=== PATIENT | female | born 1970 | race Caucasian/White ===

== ENCOUNTER → 2018-07-28 | Outpatient (CLI) | payer OTHER ==
--- NOTE | 2018-07-28 16:22 | KCIC ---
Bilateral digital screening mammograms: Reason for examination: Routine screening. Comparison is made to previous study dated 06/21/2015. Interpretation was made with the benefit of CAD. The skin and nipples show no abnormalities. No abnormal lymph nodes are seen. The breast parenchyma is predominantly fatty. (Breast density: Category A.) There are no dominant masses, suspicious calcifications or architectural distortions. Benign calcifications are again seen. Impression: No evidence of malignancy. Recommend routine screening. BI-RADS Category 2: Benign. "Our facility is accredited by the [employer] Mammography Program." This patient's information has been entered into a reminder system for the patient to be notified with the results of her examination and a target date for the next mammogram. Electronically signed by: Rae Beach MD (07/28/2018 4:18 PM) [id number]
== END | disposition home or self-care (01) ==
LOC: KCIC MAMMO 09:28
PROVIDERS: ATTEND Family Medicine
DX: Z12.31 Encounter for screening mammogram for malignant neoplasm of breast (principal)
CPT/HCPCS: 77067

== ENCOUNTER → 2020-08-10 | Outpatient (CLI) | payer MEDICARE ==
--- NOTE | 2020-08-10 08:37 | KCIC ---
CHEST PA LATERAL Technique: PA and lateral views of the chest were obtained. Clinical History: Reason: Cough, hx. pneumonia, ILD, V/P shunt, no fever, headache 1 week. / Spl. Instructions: / History: Comparison: None. Findings: The heart is top normal limits in size. The pulmonary vessels are normal. There is increased reticular opacities of the lungs and linear opacities in the left lung base. The vertical catheter on the right suggests a possible tracheal peroneal shunt. Impression: Interstitial infiltrates suggesting atypical pneumonia. Recommend follow-up chest x-ray to complete resolution. Electronically signed by: Giovanny Lopez III, MD (08/10/2020 8:35 AM) [id number]
== END ==
LOC: KCIC 08:11
PROVIDERS: ATTEND Family Medicine
DX: R05 Cough (principal); J84.9 Interstitial pulmonary disease, unspecified; Z87.01 Personal history of pneumonia (recurrent)
CPT/HCPCS: 71046

== ENCOUNTER → 2020-08-21 | Outpatient (CLI) | payer MEDICARE ==
[~2020-08-21] MED LIST: BIOT10004 PO; CETI10TA74 PO; CRESTOR5 MG PO; DOXE10CA PO; DULO60CA6 PO; HYDR200T5 PO; LEVO175T2 PO; MULT-496 PO; MYCO500T PO; PANT40TA77 PO; PIOG15TA63 PO; SITA100T PO; TIZA4TAB2 PO; TRIA1CAP3 PO; [UNRECOGNIZED DRUG - CODE] PO; vitamin d3 PO
== END ==
LOC: LAB 13:44
PROVIDERS: ATTEND Internal Medicine Cardiovascular Disease
DX: Z01.812 Encounter for preprocedural laboratory examination (principal); I49.5 Sick sinus syndrome; Z20.828 Contact with and (suspected) exposure to other viral communicable diseases
CPT/HCPCS: U0003

== ENCOUNTER 2020-08-24 06:52 | Observation (INO) | payer MEDICARE ==
[~2020-08-24] VITALS: Ht 177.8 cm; Wt 149.7 kg
[2020-08-24] VITALS (21 sets, daily range): BP systolic 94–153; BP diastolic 53–92
[2020-08-24] MEDS ORDERED: SITA100T PO (07:36)
[2020-08-24] MEDS ORDERED: PANT40TA77 PO (07:36)
[2020-08-24] MEDS ORDERED: CETI10TA74 PO (07:36)
[2020-08-24] MEDS ORDERED: MYCO500T PO (07:36)
[2020-08-24] MEDS ORDERED: TRIA1CAP3 PO (07:36)
[2020-08-24] MEDS ORDERED: DOXE10CA PO (07:36)
[2020-08-24] MEDS ORDERED: MULT-496 PO (07:36)
[2020-08-24] MEDS ORDERED: DULO60CA6 PO (07:36)
[2020-08-24] MEDS ORDERED: [UNRECOGNIZED DRUG - CODE] PO (07:36)
[2020-08-24] MEDS ORDERED: TIZA4TAB2 PO (07:36)
[2020-08-24] MEDS ORDERED: CRESTOR5 MG PO (07:36)
[2020-08-24] MEDS ORDERED: HYDR200T5 PO (07:36)
[2020-08-24] MEDS ORDERED: vitamin d3 PO (07:36)
[2020-08-24] MEDS ORDERED: LEVO175T2 PO (07:36)
[2020-08-24] MEDS ORDERED: PIOG15TA63 PO (07:36)
[2020-08-24] MEDS ORDERED: BIOT10004 PO (07:36)
[2020-08-24 07:52] LABS: CALCIUM 8.7 mg/dL (8.5-10.1); CREATININE 0.7 mg/dL (0.6-1.0); GFR 88.9; POTASSIUM 3.8 mmol/L (3.5-5.1)
[2020-08-24 07:54] LABS: HEMATOCRIT 32.2 % (36.0-47.0); HEMOGLOBIN 10.1 g/dL (12.0-15.5); RED BLOOD COUNT 4.85 x10^6/uL (3.50-5.40); RED CELL DISTRIBUTION WIDTH 17.6 % (11.5-14.5); WHITE BLOOD COUNT 7.5 x10^3/uL (4.0-11.0)
[2020-08-24 08:04] LABS: PROTHROMBIN TIME PATIENT 13.2 SEC (11.7-14.0)
--- NOTE | 2020-08-24 08:10 | EKG ---
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
[2020-08-24] MEDS ORDERED: ceFAZolin SODIUM 3 GM in IV DEXTROSE 5% 100ML 100 ML IV ONE (08:30)
[2020-08-24] MEDS ORDERED: BACITRACIN 50,000 UNIT in IV NORMAL SALINE 250ML 250 ML IRR ONE (08:30)
[2020-08-24] MEDS ORDERED: MIDAZOLAM HCL/PF 5 MG/5 ML VIAL. ONE (08:35)
[2020-08-24] MEDS ORDERED: fentaNYL PF VIAL 100 MCG/2 ML VIAL ONE ×2 (08:35→09:13)
[2020-08-24] MEDS ORDERED: LIDOCAINE 2%/EPI 1:100,000 20 ML VIAL. ONE (08:37)
[2020-08-24] MEDS ORDERED: fentaNYL PF VIAL 100 MCG/2 ML VIAL IV ONE (09:00)
[2020-08-24] MEDS ORDERED: MIDAZOLAM HCL/PF 5 MG/5 ML VIAL. IV ONE (09:00)
[2020-08-24] MEDS ORDERED: LIDOCAINE 2%/EPI 1:100,000 20 ML VIAL. IJ ONE (09:00)
--- NOTE | 2020-08-24 09:37 | PDOC ---
MODERATE SEDATION ASSESSMENT RISKS/ALTERNATIVES Risks/Alternatives Risks and alternatives of this type of sedation and procedure discussed with: RISK/ALTERNATIVES: Patient H & P ON CHART H & P H & P on chart and reviewed for co-morbid conditions and appropriate labs. H&P ON CHART: Yes STATUS PREG STATUS ASSESSED: N/A MEDS/ALLERGIES REVIEWED Meds/Allergies Reviewed Medications and Allergies including time and route of recently administered narcotics and sedatives. MEDS/ALLERGIES REVIEWED: Yes ASA RATING ASA RATING: III AIRWAY ASSESSMENT Airway Assessment Airway patency, oral function limitations, presence of caps, crowns, dentures, partials, and ability to extend neck assessed. AIRWAY ASSESSMENT: Yes MALLAMPATI SCORE MALLAMPATI SCORE: II PRE-SEDATION ASSESSMENT PRE-SEDATION ASSESSMENT: Yes STEPHANIE STALEY MD Aug 24, 2020 09:36
--- NOTE | 2020-08-24 10:00 | CARD ---
MR#: [id number] Date of Study: 08/24/2020 Ordering Physician: STEPHANIE BAÑUELOS, Referring Physician: STEPHANIE BAÑUELOS, Tech: APPROVED REPORT PROCEDURES Implantation of Medtronic dual-chamber permanent pacemaker Sedation Time: 62 Minutes Fluoro Time: 2.5 Minutes Dose: 34.66 Gycm2 INDICATIONS Syncope, sick sinus syndrome with 13-second pauses PROCEDURE After explaining the risks, benefits, and alternative options, informed consent was obtained from the patient. The patient was brought to the cardiac catheterization lab and the left chest and shoulder were prepp ed and draped in a sterile manner. 30 cc of 2% lidocaine was infiltrated into the skin and subcutaneous tissues for local anesthesia. A n incision was made over the left infraclavicular fossa and using blunt dissection and cautery, a poc ket was created. Venous access was obtained in the left subclavian vein and 8 and 6 Fijian sheaths i nserted. A Medtronic bipolar active fixation right ventricular lead model 413575, serial number [id number] wa s advanced under fluoroscopic guidance and the tip was positioned in the right ventricular apex. Fol lowing this, a Medtronic bipolar active fixation right atrial lead model 154745, serial number [id number] was positioned in the right atrial appendage under fluoroscopic guidance. The leads were secur ed into place and were attached to a Medtronic dual-chamber permanent pacemaker generator model W3DR0 1, serial number [id number]. This was placed in the pocket that was subsequently closed in 3 layers. Hemostasis was secured. The right ventricular lead showed a sensing amplitude of 16.8 mV, impedance of 710 ohms and a thresho ld of 0.3 V. Right atrial lead showed a sensing amplitude of 2.2 mV, impedance of 481 ohms and a thr eshold of 1.1 V. Patient tolerated the procedure well. There were no immediate complications. CONCLUSION Successful implantation of Medtronic dual-chamber permanent pacemaker for symptomatic sick sinus synd sharon with significant pauses. Signed by : Stephanie Bañuelos, Electronically Approved : 08/24/2020 10:00:00
--- NOTE | 2020-08-24 10:19 | RAD ---
PORTABLE CHEST 1V 08/24/2020 9:34 AM INDICATION: Pacemaker placement COMPARISON: 08/10/2020 TECHNIQUE: Portable frontal view of the chest is provided. FINDINGS: The cardiomediastinal silhouette is within normal limits. Lungs are clear. Left chest wall cardiac device is identified with leads projecting over the right atrium and ventricle. Right chest wall ventricular peritoneal catheter is partially profiled. Mild pulmonary vascular congestion, similar to the prior examination. There may be trace left pleural effusion. No pneumothorax. No new airspace consolidation. Anterior cervical discectomy fusion hardware is partially profiled within the mid cervical spine. IMPRESSION: Left chest wall cardiac device is identified with leads projecting over the right atrium and right ventricle. No pneumothorax. Similar degree of suspected mild heart failure. Electronically signed by: Chel Fine MD (08/24/2020 10:16 AM) [id number]
--- NOTE | 2020-08-24 11:22 | NUR ---
Report given to Nica VALDEZ on . Patient had pacemaker placed for sick sinus syndrome this a.m., dressing left chest is clean,dry,intact and arm immobilizer is in place. Patient ate breakfast, vital signs stable, and patient resting comfortably in bed. This RN will transport patient to room 260.
[2020-08-24] MEDS: oxyCODONE/APAP 5/325 1 TAB TABLET PO PRN ×3 (12:33→21:18)
[2020-08-24] MEDS: CALCIUM CARBONATE 500 MG TAB.CHEW PO SCH ×2 (14:46→21:17)
[2020-08-24] MEDS: CETIRIZINE HCL 10 MG TABLET. PO SCH (14:46)
[2020-08-24] MEDS: PANTOPRAZOLE 40 MG TABLET.DR. PO SCH (16:19)
[2020-08-24] MEDS: INSULIN LISPRO 300 UNITS/3 ML VIAL. SQ SCH (17:00)
[2020-08-24] MEDS ORDERED: DEXTROSE 50% 25 GM / 50ML DISP.SYRIN. IV PRN (17:00)
[2020-08-24] MEDS ORDERED: NON FORMULARY ITEM (Biotin 1 TAB) PO SCH (21:00)
[2020-08-24] MEDS ORDERED: ATORVASTATIN CALCIUM 40 MG TABLET. PO SCH (21:00)
[2020-08-24] MEDS ORDERED: DOXEPIN HCL 10 MG CAPSULE. PO SCH (21:00)
[2020-08-24] MEDS ORDERED: tiZANidine 4 MG TABLET. PO SCH (21:00)
[2020-08-24] MEDS: HYDROXYCHLOROQUINE 200 MG TABLET PO SCH (21:17)
[2020-08-24] MEDS: MYCOPHENOLATE MOFETIL 250 MG CAPSULE. PO SCH (21:18)
[2020-08-25] MEDS: oxyCODONE/APAP 5/325 1 TAB TABLET PO PRN ×2 (02:05→06:27)
[2020-08-25 02:45] VITALS: BP 108/57
[2020-08-25] MEDS ORDERED: LEVOTHYROXINE 175 MCG TABLET PO SCH (06:00)
[2020-08-25] MEDS: PANTOPRAZOLE 40 MG TABLET.DR. PO SCH (06:23)
[2020-08-25 07:00] VITALS: BP 115/66
[2020-08-25] MEDS: INSULIN LISPRO 300 UNITS/3 ML VIAL. SQ SCH (08:00)
[2020-08-25] MEDS: HYDROXYCHLOROQUINE 200 MG TABLET PO SCH (08:43)
[2020-08-25] MEDS: CALCIUM CARBONATE 500 MG TAB.CHEW PO SCH (08:44)
[2020-08-25] MEDS: CETIRIZINE HCL 10 MG TABLET. PO SCH (08:45)
[2020-08-25] MEDS: MYCOPHENOLATE MOFETIL 250 MG CAPSULE. PO SCH (08:46)
[2020-08-25] MEDS ORDERED: MULTIVITAMIN with MINERAL TABLET. PO SCH (09:00)
[2020-08-25] MEDS ORDERED: TRIAMTERENE/HCTZ 37.5/25MG TABLET. PO SCH (09:00)
[2020-08-25] MEDS ORDERED: LINAGLIPTIN 5 MG TABLET PO SCH (09:00)
[2020-08-25] MEDS ORDERED: DULoxetine HCL 30 MG CAPSULE.DR PO SCH (09:00)
[2020-08-25] MEDS ORDERED: PIOGLITAZONE 15 MG TABLET. PO SCH (09:00)
[2020-08-25] MEDS ORDERED: CHOLECALCIFEROL (VITAMIN D3) 5,000 UNIT CAPSULE PO SCH (09:00)
--- NOTE | 2020-08-25 10:06 | RAD ---
CHEST PA LATERAL INDICATION: Reason: 1 day post pacemaker / Spl. Instructions: / History: . COMPARISON STUDY: 08/24/2020. FINDINGS: Life Support Devices: Left pectoral pacemaker.. Lungs: Normal lung volume. Unchanged mild interstitial opacities. Pleura: No pleural effusion or pneumothorax. Heart and Mediastinum: Stable cardiomediastinal silhouette and great vessels. Bones and Soft Tissues: Stable regional skeleton and soft tissues. IMPRESSION: Unchanged mild interstitial opacities. No pneumothorax. Electronically signed by: Jeff Jaimes MD (08/25/2020 10:03 AM) [id number]
[2020-08-25 11:00] VITALS: BP 147/78
[2020-08-25] MEDS ORDERED: ASPI-886 PO (11:09)
--- NOTE | 2020-08-25 13:22 | NUR ---
Discharge Note: YULI FALLON [address] Discharge instructions and discharge home medications reviewed with Patient and a copy given. All questions have been answered and understanding verbalized. The following instructions and handouts were given: Pots pacemaker placement dc teaching. Discontinued iv line and catheter intact. Patient discharged to home with self-care via private vehicle.
--- NOTE | 2020-08-25 14:18 | PDOC3 ---
Discharge Summary Visit Information Date of Admission: Aug 24, 2020 Date of Discharge: Aug 25, 2020 Admitting Diagnosis: Syncope with sick sinus syndrome with severe pauses. Final Diagnosis Syncope with sick sinus syndrome and severe pauses up to 13 seconds Brief Hospital Course Allergies Allergies Coded Allergies Type Severity Reaction Last Updated Verified No Known Drug Allergies 08/06/20 No Vital Signs Vital Signs Date Time Temp Pulse Resp B/P (MAP) Pulse Ox O2 Delivery O2 Flow Rate FiO2 08/25/20 11:00 97.5 62 18 147/78 (101) 95 Room Air 97.5 08/25/20 08:00 2.0 Lab Results Laboratory Tests Test 08/24/20 07:35 08/24/20 11:49 08/24/20 16:59 08/24/20 20:50 White Blood Count 7.5 x10^3/uL (4.0-11.0) Red Blood Count 4.85 x10^6/uL (3.50-5.40) Hemoglobin 10.1 g/dL (12.0-15.5) Hematocrit 32.2 % (36.0-47.0) Mean Corpuscular Volume 67 fL (79-100) Mean Corpuscular Hemoglobin 21 pg (25-35) Mean Corpuscular Hemoglobin Concent 31 g/dL (31-37) Red Cell Distribution Width 17.6 % (11.5-14.5) Platelet Count 410 x10^3/uL (140-400) Prothrombin Time 13.2 SEC (11.7-14.0) Prothromb Time International Ratio 1.0 (0.8-1.1) Sodium Level 141 mmol/L (136-145) Potassium Level 3.8 mmol/L (3.5-5.1) Chloride Level 105 mmol/L (98-107) Carbon Dioxide Level 26 mmol/L (21-32) Anion Gap 10 (6-14) Blood Urea Nitrogen 10 mg/dL (7-20) Creatinine 0.7 mg/dL (0.6-1.0) Estimated GFR (Cockcroft-Gault) 88.9 Glucose Level 128 mg/dL (70-99) Calcium Level 8.7 mg/dL (8.5-10.1) Glucose (Fingerstick) 166 mg/dL (70-99) 131 mg/dL (70-99) 84 mg/dL (70-99) Test 08/25/20 07:57 08/25/20 11:36 Glucose (Fingerstick) 103 mg/dL (70-99) 107 mg/dL (70-99) Laboratory Tests Test 08/24/20 16:59 08/24/20 20:50 08/25/20 07:57 08/25/20 11:36 Glucose (Fingerstick) 131 mg/dL (70-99) 84 mg/dL (70-99) 103 mg/dL (70-99) 107 mg/dL (70-99) Brief Hospital Course The patient is a 50-year-old female with history of syncope. Work-up showed sick sinus syndrome with severe pauses up to 13 seconds. Risks and benefits of permanent pacemaker were discussed with the patient and she agreed to proceed. A dual-chamber pacemaker was placed without complications on 08/24/2020. The patient remained stable overnight. Chest x-rays both post device and this morning showed no acute changes and no pneumothorax. Interrogation of device this morning shows normal functioning. The patient was stable overnight and is feeling well today. She will be discharged in a stable condition on her baseline home medications. We will follow-up the patient by phone in 2 days and arrange an outpatient wound check. Assessment Assessment Syncope with sick sinus syndrome and severe pauses. Successful placement of a dual-chamber permanent pacemaker. Discharge Information Scheduled Aspirin (Aspirin Ec) 81 Mg Tablet.dr, 1 TAB PO DAILY for blood thinner, #30 Ref 3 (Reported) Entered as Reported by: EMIGDIO SAMPSON RN on 08/25/20 1109 Biotin (Biotin) 1,000 Mcg Tab.chew, 1 TAB PO BID for rx for 30 Days, #60 Ref 0 ( Reported) Entered as Reported by: EARNEST CRESPO on 08/24/20735 Last Action: Converted on 08/24/20 130 by CHRIS SHAW Cetirizine Hcl (Zyrtec) 10 Mg Tablet, 1 TAB PO DAILY for rx, #30 Ref 2 (Reported) Entered as Reported by: EARNEST CRESPO on 08/24/20735 Last Action: Continued on 08/24/20 1305 by CHRIS SHAW Doxepin Hcl (Doxepin Hcl) 10 Mg Capsule, 2 CAP PO QHS for rx, #30 Ref 2 (Reported) Entered as Reported by: EARNEST CRESPO on 08/24/20735 Last Action: Continued on 08/24/201304 by CHRIS COLIN Duloxetine Hcl (Cymbalta) 60 Mg Capsule.dr, 1 CAP PO DAILY for rx, #90 Ref 3 (Reported) Entered as Reported by: EARNEST CRESPO on 08/24/20735 Last Action: Converted on 08/24/201304 by CHRIS SHAW Hydroxychloroquine Sulfate (Hydroxychloroquine Sulfate) 200 Mg Tablet, 1 TAB PO BID for rx, #180 Ref 1 (Reported) Entered as Reported by: EARNEST CRESPO on 08/24/20735 Last Action: Continued on 08/24/201304 by CHRIS COLIN Levothyroxine Sodium (Synthroid) 175 Mcg Tablet, 1 TAB PO DAILY for rx, #30 Ref 5 (Reported) Entered as Reported by: EARNEST CRESPO on 08/24/20735 Last Action: Continued on 08/24/201304 by CHRIS SHAW Multivitamin (Daily Value) 1 Each Tablet, 1 TAB PO DAILY for rx for 30 Days, #30 Ref 0 (Reported) Entered as Reported by: EARNEST CRESPO on 08/24/20735 Last Action: Converted on 08/24/201304 by CHRIS COLIN Mycophenolate Mofetil (Cellcept) 500 Mg Tablet, 2 TAB PO BID for rx, #360 Ref 3 (Reported) Entered as Reported by: EARNEST CRESPO on 08/24/20735 Last Action: Converted on 08/24/201304 [facility] Pantoprazole Sodium (Protonix ) 40 Mg Tablet., 40 MG PO DAILYAC for GERD, (Reported) Entered as Reported by: EARNEST CRESPO on 08/24/20735 Last Action: Continued on 08/24/201304 by [facility] Pioglitazone Hcl (Pioglitazone Hcl) 15 Mg Tablet, 15 MG PO DAILY for rx, (Reported) Entered as Reported by: EARNEST CRESPO on 08/24/20735 Last Action: Continued on 08/24/201304 by [facility] Rosuvastatin Calcium (Crestor) 5 Mg Tablet, 10 MG PO HS for FOR CHOLESTEROL, #30 Ref 0 (Reported) Entered as Reported by: EARNEST CRESPO on 08/24/20735 Last Action: Converted on 08/24/201304 by [facility] Sitagliptin Phosphate (Januvia) 100 Mg Tablet, 1 TAB PO DAILY for rx, #30 Ref 5 (Reported) Entered as Reported by: EARNEST CRESPO on 08/24/20735 Last Action: Converted on 08/24/201304 by CHRIS SHAW Tizanidine Hcl (Tizanidine Hcl) 4 Mg Tablet, 1 TAB PO QHS for rx, #30 (Reported) Entered as Reported by: EARNEST CRESPO on 08/24/20735 Last Action: Continued on 08/24/201304 by CHRIS SHAW Triamterene/Hydrochlorothiazid (Triamterene-Hctz 37.5-25 Mg Cp) 1 Each Capsule, 1 CAP PO DAILY for rx, #30 Ref 5 (Reported) Entered as Reported by: EARNEST CRESPO on 08/24/20735 Last Action: Converted on 08/24/201304 by CHRIS SHAW [calci-chew] , 1 TAB PO TID, (Reported) Entered as Reported by: EARNEST CRESPO on 08/24/20735 Last Action: Converted on 08/24/201304 by CHRIS SHAW [vitamin d3 ] , 5,000 UNIT PO DAILY, (Reported) Entered as Reported by: EARNEST CRESPO on 08/24/20735 Last Action: Converted on 08/24/201304 by CHRIS SHAW Patient Instructions Patient Instructions Resume present home medications. Gradually increase activities as tolerated. We will check the patient via phone in 2 days. We will schedule follow-up at that time. Justicifation of Admission Dx: Justifications for Admission: Justification of Admission Dx: Yes (Syncope with sick sinus syndrome and severe pauses up to 13 seconds.) EDER SALEH MD Aug 25, 2020 14:18
[2020-08-26] MEDS ORDERED: ASPIRIN CHEWABLE 81 MG TABLET. PO SCH (08:00)
== END 2020-08-25 13:46 | disposition home or self-care (01) ==
LOC: CCL 06:52 → 2 SOUTH 09:00
PROVIDERS: ADMIT Internal Medicine Cardiovascular Disease; ATTEND Internal Medicine Cardiovascular Disease
DX: I49.5 Sick sinus syndrome (principal); T82.9XXA Unspecified complication of cardiac and vascular prosthetic device, implant and graft, initial encounter; R55 Syncope and collapse; K21.9 Gastro-esophageal reflux disease without esophagitis; I10 Essential (primary) hypertension; E11.9 Type 2 diabetes mellitus without complications; E78.5 Hyperlipidemia, unspecified; E03.9 Hypothyroidism, unspecified; Z45.018 Encounter for adjustment and management of other part of cardiac pacemaker; Z79.82 Long term (current) use of aspirin; Z79.890 Hormone replacement therapy; Z79.84 Long term (current) use of oral hypoglycemic drugs; Z79.899 Other long term (current) drug therapy
CPT/HCPCS: 33208; 36415; 71045; 71046; 80048; 82962; 85027; 85610; 93005; 96365; 96366; 96375; 99152; 99153; C1785; C1898; G0378; G0379; J0690; J2250; J3010; J3490; J7050; J7060; J7517; J7030

== ENCOUNTER → 2021-01-16 | Outpatient (CLI) | payer MEDICARE ==
[~2021-01-16] MED LIST changes: +ASPI-886 PO
--- NOTE | 2021-01-21 15:10 | SLEEP ---
DATE OF STUDY: 01/14/2021 SLEEP STUDY ATTENDING PHYSICIAN: Dr. Donovan Galo. The patient is a 50-year-old who weighs 338 pounds with a BMI of 47. The patient underwent split night study performed at [facility]. During the night of study, the patient spent 410 minutes in bed and slept for 363 minutes with a sleep efficiency of 88%. Sleep latency was 6 minutes with a REM latency of 243 minutes. Sleep architecture showed normal stage 1 sleep, increased stage 2 sleep, normal slow wave and reduced REM sleep. During the initial diagnostic portion of the study, the patient slept for 69 minutes. During that time, there were 3 obstructive apneas, 37 hypopneas, no mixed apneas and 8 central apneas. The patient's AHI was 42 per hour. Supine AHI of 42 per hour. REM sleep was not seen during the diagnostic portion. EKG monitoring revealed an average heart rate of 69 beats per minute, no sustained arrhythmias observed. Nocturnal oximetry study revealed a mean oxygen saturation of 92%; the lowest of 86%. Only 2% of the time oxygen saturation remained between 80% and 89%. PLMS were seen at index of 51 per hour and 12 per hour caused EEG arousals. The patient met the criteria for CPAP initiation. It was started at 5 cm water and titrated up to 15 cm water. At the final pressure, the patient slept for 185 minutes. The patient had supine as well as REM sleep. The patient's AHI was reduced to 6 per hour and this was related to few treatment emergent central apneas. All obstructive apneas were eliminated as well as hypopneas were eliminated. Oxygen saturation remained above 91%. IMPRESSION: 1. Severe obstructive sleep apnea at an apnea-hypopnea index of 42 per hour. 2. Nocturnal hypoxia, resolved with continuous positive airway pressure. 3. Severe periodic limb movements at an index of 51 per hour and 12 per hour caused electroencephalogram arousals. RECOMMENDATIONS: 1. CPAP at 15 cm water completely eliminated the patient's sleep apnea and should be used on a nightly basis. The patient used small size nasal full facemask. 2. Follow up in 4-6 weeks to assess compliance with CPAP and to document clinical improvement. 3. Weight loss is strongly advised. 4. 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 5. Cautioned regarding driving until symptoms of sleep apnea resolve with the use of CPAP. 6. The patient should also be further evaluated for symptoms of restless legs during the day. JEFFRY PUENTE MD DR: CHRIS/rafael JOB#: [id number] / [id number] DONOVAN Jimenez MD
== END ==
LOC: SLPLAB 18:44
PROVIDERS: ATTEND Family Medicine
DX: G47.33 Obstructive sleep apnea (adult) (pediatric) (principal); G47.34 Idiopathic sleep related nonobstructive alveolar hypoventilation; G47.61 Periodic limb movement disorder
CPT/HCPCS: 95810

== ENCOUNTER 2021-07-08 08:19 | Outpatient (CLI) | payer MEDICARE ==
[~2021-07-08] VITALS: Ht 177.8 cm; Wt 159.1 kg
[2021-07-08] VITALS (11 sets, daily range): BP systolic 106–146; BP diastolic 68–82
[2021-07-08 09:06] LABS: HEMOGLOBIN 14.4 g/dL (12.0-15.5); RED BLOOD COUNT 5.24 x10^6/uL (3.50-5.40); RED CELL DISTRIBUTION WIDTH 15.7 % (11.5-14.5); WHITE BLOOD COUNT 6.5 x10^3/uL (4.0-11.0)
[2021-07-08] MEDS ORDERED: ROPI2TAB10 PO (09:09)
[2021-07-08] MEDS ORDERED: ONDA4TAB7 PO (09:09)
[2021-07-08] MEDS ORDERED: CELE200C PO (09:09)
[2021-07-08 09:13] LABS: CALCIUM 9.1 mg/dL (8.5-10.1); CREATININE 0.9 mg/dL (0.6-1.0); GFR 66.3; POTASSIUM 3.4 mmol/L (3.5-5.1)
[2021-07-08] MEDS ORDERED: IODIXANOL 320 MG/ML 100 ML VIAL. ONE (09:28)
[2021-07-08] MEDS ORDERED: LIDOCAINE 1% Multi-Dose 20 ML VIAL. ONE (09:29)
[2021-07-08] MEDS ORDERED: fentaNYL PF VIAL 100 MCG/2 ML VIAL ONE (09:45)
[2021-07-08] MEDS ORDERED: MIDAZOLAM HCL/PF 2 MG/2 ML VIAL. ONE (09:45)
--- NOTE | 2021-07-08 09:47 | PDOC ---
MODERATE SEDATION ASSESSMENT RISKS/ALTERNATIVES Risks/Alternatives Risks and alternatives of this type of sedation and procedure discussed with: RISK/ALTERNATIVES: Patient H & P ON CHART H & P H & P on chart and reviewed for co-morbid conditions and appropriate labs. H&P ON CHART: Yes STATUS PREG STATUS ASSESSED: N/A MEDS/ALLERGIES REVIEWED Meds/Allergies Reviewed Medications and Allergies including time and route of recently administered narcotics and sedatives. MEDS/ALLERGIES REVIEWED: Yes ASA RATING ASA RATING: II AIRWAY ASSESSMENT Airway Assessment Airway patency, oral function limitations, presence of caps, crowns, dentures, partials, and ability to extend neck assessed. AIRWAY ASSESSMENT: Yes MALLAMPATI SCORE MALLAMPATI SCORE: II PRE-SEDATION ASSESSMENT PRE-SEDATION ASSESSMENT: Yes STEPHANIE STALEY MD Jul 08, 2021 09:47
[2021-07-08] MEDS ORDERED: LIDOCAINE 1% Multi-Dose 20 ML VIAL. INJ ONE (10:30)
[2021-07-08] MEDS ORDERED: MIDAZOLAM HCL/PF 2 MG/2 ML VIAL. IV ONE (10:30)
[2021-07-08] MEDS ORDERED: fentaNYL PF VIAL 100 MCG/2 ML VIAL IV ONE (10:30)
[2021-07-08] MEDS ORDERED: IODIXANOL 320 MG/ML 100 ML VIAL. IART ONE (10:30)
[2021-07-08] MEDS ORDERED: IV 1/2 NORMAL SALINE 1,000 ML IV SCH (10:45)
--- NOTE | 2021-07-08 10:52 | CARD ---
MR#: [id number] Date of Study: 07/08/2021 Ordering Physician: STEPHANIE BAÑUELOS, Referring Physician: STEPHANIE BAÑUELOS, Tech: RT Radha(R)() APPROVED REPORT Technologist: RT Radha(R)() Nurse: Shila Ramires RN Procedure(s) performed: Right and left heart catheterization, selective coronary angiography MODERATE SEDATION TIME: 44 MINUTES FLUORO TIME: 4.9 MIN DOSE: 61 GYCM2 CONTRAST: 104CC VISI INDICATION The indication(s) include : Refractory dyspnea on exertion and chest pain concerning for unstable ang elkin. [facility] Clinical Frailty Scale [facility] Clinical Frailty Scale: Mildly Frail Heart Failure Heart Failure: No CASE TECHNIQUE IV conscious sedation was used throughout procedure with appropriate monitoring and was performed in the presence of a registered nurse who was an independent trained observer other than the physician p erforming the procedure. During this case, Fluoroscopy and low osmolar contrast were used for imaging . Specimen(s) Removed: No Estimated Blood loss: 20 cc's. PROCEDURE NARRATIVE After explaining the risk, benefits and alternative options, informed consent was obtained from patie nt. Patient was brought to the cardiac Technical Services Coordinator and her right groin was prepped and draped in the us ual fashion. 20 cc of 2% lidocaine was infiltrated into the skin and subcutaneous tissues for local anesthesia. Arterial and venous accesses were obtained in the right common femoral artery and vein r espectively and 6 and 8 Icelandic sheaths inserted. A 7.5 Icelandic Hatton-Vandana catheter was then advanced u nder fluoroscopic guidance and intracardiac pressures, oxygen saturations and cardiac output by Melissa method measured. Subsequently, 6 Icelandic JL4 and 6 Icelandic JR4 catheters were used to perform selectiv e angiography of the left and right coronary arteries. Finally, 6 Icelandic pigtail catheter was used t o perform left ventriculography. Patient tolerated the procedure well. Hemostasis was achieved usin g Angio-Seal and manual compression. There were no immediate complications. FINDINGS A. RIGHT HEART CATHETERIZATION 1. Intracardiac pressures: Mean right atrial pressure 6 mmHg, right ventricular pressure 32/3 mmHg, pulmonary artery pressure 35/14 mmHg with a mean PA pressure of 23 mmHg and mean pulmonary capillary wedge pressure 10 mmHg. Normal left and right-sided filling pressures without any pulmonary hyperten horace. 2. Oxygen saturations: Right atrium 72.9%, pulmonary artery 73.4%, femoral arterial sheath 98.1%. N o evidence of intracardiac shunt. 3. Cardiac output by Melissa method 5.15 L/min. B. LEFT HEART CATHETERIZATION 1. Hemodynamics: Left ventricular end-diastolic pressure 14 mmHg. No pullback gradient across aorti c valve. 2. Left ventriculography: Normal left ventricle systolic function with ejection fraction estimated a t 60%. No mitral relationship 3. Coronary angiography: a. The left main coronary artery arose from the left sinus of Valsalva, gave rise to the left anteri or descending left circumflex arteries and did not show any significant stenosis. b. The left anterior descending artery did not show any significant stenosis. c. The left circumflex artery did not show any significant stenosis. d. The right coronary artery was a large and dominant vessel arising from the right sinus of Valsalv a that did not show any significant stenosis. Conclusion 1. No significant coronary artery disease 2. Normal left ventricle systolic function with ejection fraction estimated at 60% 3. Normal right and left-sided filling pressures without any pulmonary hypertension 4. No evidence of intracardiac shunt Recommendations Cardiovascular risk factor modification including weight loss and regular exercise regimen Signed by : Stephanie Bañuelos, Electronically Approved : 07/08/2021 10:51:50
--- NOTE | 2021-07-08 13:31 | NUR ---
Discharge Note: YULI FALLON [facility] Discharge instructions and discharge home medications reviewed with Patient and a copy given. All questions have been answered and understanding verbalized. The following instructions and handouts were given: Groin Site care, and moderate sedation. Discontinued lines and drains: Left FA IV dc'd tip intact, bandage applied. Patient discharged to home with daughter via personal vehicle.
== END 2021-07-08 13:34 | disposition home or self-care (01) ==
LOC: CCL 08:19
PROVIDERS: ATTEND Internal Medicine Cardiovascular Disease
DX: R06.09 Other forms of dyspnea (principal); R07.9 Chest pain, unspecified; R06.00 Dyspnea, unspecified; E78.00 Pure hypercholesterolemia, unspecified; K21.9 Gastro-esophageal reflux disease without esophagitis; E11.9 Type 2 diabetes mellitus without complications; F41.9 Anxiety disorder, unspecified; F32.9 Major depressive disorder, single episode, unspecified; Z87.891 Personal history of nicotine dependence; Z79.82 Long term (current) use of aspirin; Z79.84 Long term (current) use of oral hypoglycemic drugs; Z79.899 Other long term (current) drug therapy; Z90.49 Acquired absence of other specified parts of digestive tract; Z98.890 Other specified postprocedural states
CPT/HCPCS: 36415; 80048; 85027; 93460; 99152; 99153; C1760; C1769; C1773; C1894; J1644; J2250; J3010; J3490; Q9967; G0269

== ENCOUNTER → 2021-11-21 | Outpatient (CLI) | payer MEDICARE ==
[2021-07-08 13:23] VITALS: BP 106/75
[~2021-11-21] MED LIST changes: +CELE200C PO; -DULO60CA6 PO; +DULO60CA7 PO; +ONDA4TAB7 PO; +ROPI2TAB10 PO; +TIZA-75 PO; -TIZA4TAB2 PO
--- NOTE | 2021-11-21 11:54 | KCIC ---
EXAM: Right wrist, 2 views. HISTORY: Fall. COMPARISON: None. FINDINGS: 2 views of the right wrist are obtained. There is no fracture, dislocation or subluxation. IMPRESSION: No acute osseous finding. Electronically signed by: Keri Solano MD (11/21/2021 11:52 AM) [id number]
== END ==
LOC: KCIC 11:17
PROVIDERS: ATTEND Family Medicine
DX: M25.531 Pain in right wrist (principal); W19.XXXA Unspecified fall, initial encounter
CPT/HCPCS: 73100